=== PATIENT | male | born 1960 | race Caucasian/White ===

== ENCOUNTER 2023-02-27 11:51 | Emergency (ER) | payer OTHER ==
[~2023-02-27] VITALS: Ht 170.2 cm; Wt 124.7 kg
[~2023-02-27 11:51] MED LIST: ACEASPCAF; ACET500; ALBU90OI INH; AMOCLA875 PO; AMOX500 PO; ASPI325; ASPI325 PO; ASPI500; CEPH500 PO; DOC250 PO; EXCEDRIN MIGRAINE; HYDACE5 PO; HYDGUAL120 PO; IBUP800; INS70/30I; INSN100I SQ; INSR10I; INSR10I SQ; LEVFLO500 PO; LISI5; LISI5 PO; METF500; METF500 PO; METR500 PO; OXYACE5T PO; PENVK500 PO; PIOG15; PRED20 PO; RXSULTRIDS PO; SULTRIDS PO; SULTRISS; TRAM50; VALA500 PO; [UNRECOGNIZED DRUG - REMARK]
[2023-02-27 12:02] VITALS: BP 169/98
[2023-02-27] MEDS ORDERED: HYDR1TAB94 PO (13:50)
== END 2023-02-27 14:04 | disposition home or self-care (01) ==
LOC: ER 11:51
DX: E11.40 Type 2 diabetes mellitus with diabetic neuropathy, unspecified (principal); Z51.81 Encounter for therapeutic drug level monitoring; I10 Essential (primary) hypertension; Z79.4 Long term (current) use of insulin; Z79.82 Long term (current) use of aspirin; Z79.2 Long term (current) use of antibiotics; Z79.1 Long term (current) use of non-steroidal anti-inflammatories (NSAID); Z79.899 Other long term (current) drug therapy
CPT/HCPCS: J1885; J3010

== ENCOUNTER 2024-04-30 16:25 | Emergency (ER) | payer OTHER ==
[~2024-04-30] VITALS: Ht 167.6 cm; Wt 122.5 kg
[~2024-04-30 16:25] MED LIST changes: +HYDR1TAB94 PO
[2024-04-30 17:04] VITALS: BP 143/86
[2024-04-30] MEDS ORDERED: FentaNYL Citrate 50 MCG/ML 2 ML Injection IM ONE (17:15)
[2024-04-30] MEDS ORDERED: Insulin Glargine-Yfgn 100 Unit/mL 3 ML SYR SC ONE (17:15)
== END 2024-04-30 18:17 | disposition home or self-care (01) ==
LOC: ER 16:25
DX: E11.42 Type 2 diabetes mellitus with diabetic polyneuropathy (principal); E11.65 Type 2 diabetes mellitus with hyperglycemia; G51.0 Bell's palsy; I10 Essential (primary) hypertension; Z79.4 Long term (current) use of insulin; Z79.82 Long term (current) use of aspirin; Z79.899 Other long term (current) drug therapy
CPT/HCPCS: 96374; 99281-25; J1815; J3010

== ENCOUNTER 2024-09-13 03:41 | Inpatient (IN) | payer OTHER ==
[2024-09-13] VITALS (7 sets, daily range): BP systolic 124–160; BP diastolic 65–93
[~2024-09-13] VITALS: Ht 170.2 cm; Wt 127.6 kg
[2024-09-13] MEDS ORDERED: Albuterol 2.5 MG/3 ML VIAL INH SCH (04:05)
[2024-09-13 05:06] LABS: Bicarbonate Venous 22.7 mmol/L (24.0-30.0); PCO2 Venous 40 mmHg (38-42); pH Blood Venous 7.37 (7.34-7.37)
[2024-09-13] MEDS ORDERED: FLU VACC TS2024-25(6MOS UP)/PF 45 MCG/0.5 ML SYRINGE IM ONE (05:10)
[2024-09-13] MEDS ORDERED: Ondansetron HCl 2 MG / ML 2ML Vial IV PRN (05:10)
[2024-09-13] MEDS ORDERED: Ipratropium/Albuterol SulF 2.5-0.5MG/3 ML Amp INH SCH ×2 (05:40→05:50)
[2024-09-13] MEDS ORDERED: Acetaminophen 325 MG TABLET PO PRN (05:40)
[2024-09-13] MEDS ORDERED: Albuterol 2.5 MG/3 ML VIAL INH PRN (05:45)
[2024-09-13] MEDS ORDERED: OxyCODONE HCL 5 MG TAB PO PRN ×2 (05:55→06:55)
[2024-09-13] MEDS ORDERED: Doxycycline Hyclate 100 MG in Dextrose 5% 250 ML IV SCH (05:59)
[2024-09-13] MEDS ORDERED: Vitamin B-12100 MCG PO (06:18)
[2024-09-13] MEDS ORDERED: DOCU100 PO (06:19)
[2024-09-13] MEDS ORDERED: Vitamin B Comple1 EA PO (06:20)
[2024-09-13] MEDS ORDERED: FentaNYL Citrate 50 MCG/ML 2 ML Injection IV PRN (06:25)
[2024-09-13] MEDS ORDERED: LATA.005SO BOTHEYES (06:29)
[2024-09-13] MEDS ORDERED: OZEMPIC1 MG/0.72 SC (06:31)
[2024-09-13] MEDS ORDERED: CARV25 PO (06:31)
[2024-09-13] MEDS ORDERED: METF500 PO (06:32)
[2024-09-13] MEDS ORDERED: JARDIANCE25 MG PO ×2 (06:33)
[2024-09-13] MEDS ORDERED: OXYC5 PO (06:34)
[2024-09-13] MEDS ORDERED: Flonase 0.05% N16 GM (06:35)
[2024-09-13] MEDS ORDERED: PRALUENT P150 MG/1 M SC (06:36)
[2024-09-13] MEDS ORDERED: STIOLTO RESPIMAT4 G1 INH (06:38)
[2024-09-13] MEDS ORDERED: HUMULIN N100 UNIT/6 SC (06:42)
[2024-09-13] MEDS ORDERED: Natrol Alpha 3300 MG (06:42)
[2024-09-13] MEDS ORDERED: [UNRECOGNIZED DRUG - OTHER] PO (06:44)
[2024-09-13] MEDS ORDERED: MOME220I INH (06:45)
[2024-09-13] MEDS ORDERED: THERA-D2000 UNIT PO (06:47)
[2024-09-13] MEDS ORDERED: NARCAN4 M1 (06:48)
[2024-09-13] MEDS ORDERED: [UNRECOGNIZED DRUG - OTHER] DT (06:49)
[2024-09-13] MEDS ORDERED: Morphine Sulfate 4 MG/1 ML Injection IV ONE (06:50)
[2024-09-13] MEDS ORDERED: Insulin Human Lispro 100 Units/ML 3ML Syringe SC SCH (07:30)
[2024-09-13] MEDS ORDERED: Saline Nasal Spray 45 ML PRN (08:05)
[2024-09-13 08:14] LABS: BASOPHILS ABSOLUTE AUTO 0.16 K/mm3 (0.00-0.23); BASOPHILS PERCENT AUTO 1 % (0-2); EOSINOPHILS ABSOLUTE AUTO 0.41 K/mm3 (0.00-0.68); EOSINOPHILS PERCENT AUTO 3 % (0-6); Hematocrit 49.8 % (37.0-53.0); Hemoglobin 16.1 g/dL (13.5-17.5); IMMATURE GRAN ABSOLUTE AUTO 0.09 K/mm3 (0.00-0.10); IMMATURE GRAN PERCENT AUTO 1 % (0-1); LYMPHOCYTES ABSOLUTE AUTO 6.63 K/mm3 (0.84-5.20); LYMPHOCYTES PERCENT AUTO 41 % (21-46); MONOCYTES ABSOLUTE AUTO 1.27 K/mm3 (0.16-1.47); MONOCYTES PERCENT AUTO 8 % (4-13); Mean Corpuscular HGB 29.5 pg (26.0-34.0); Mean Corpuscular HGB Conc 32.3 g/dL (31.5-36.5); Mean Corpuscular Volume 91 fL (80-100); NEUTROPHILS ABSOLUTE AUTO 7.75 K/mm3 (1.96-9.15); NEUTROPHILS PERCENT AUTO 48 % (41-73); Platelet Count 267 K/mm3 (150-400); RDW Coefficient Variation 15.3 % (11.7-14.2); RDW Standard Deviation 50.7 fL (35.1-46.3); Red Blood Cell Count 5.45 M/mm3 (4.30-5.90); White Blood Cell Count 16.31 K/mm3 (4.00-11.30)
[2024-09-13 08:19] LABS: Albumin, Blood 4.1 g/dL (3.4-5.0); Bilirubin, Total 0.4 mg/dL (0.1-1.0); Bun/Creatinine Ratio 26.9 (12.0-20.0); Calcium, Blood 9.5 mg/dL (8.5-10.1); Creatinine, Blood 1.04 mg/dL (0.60-1.20); Globulin, Blood 4.1 g/dL (2.2-4.0); Potassium, Blood 4.9 mmol/L (3.5-5.5); Total Protein, Blood 8.2 g/dL (6.4-8.2)
[2024-09-13 08:49] LABS: Influenza A, PCR NEGATIVE (NEGATIVE); Influenza B, PCR NEGATIVE (NEGATIVE); Resp Syncytial Virus, PCR NEGATIVE (NEGATIVE); SARS-Cov-2 (COVID-19) PCR, MMC NEGATIVE (NEGATIVE)
--- NOTE | 2024-09-13 08:51 | NUR ---
ASSUMPTION OF CARE: PATIENT IS ALERT AND ORIENTED X 4 ANXIOUS, ABLE TO MAKE NEEDS KNOWN, CALLS APPROPRIATELY, DENIES CHEST PAIN OR PRESSURE. CURRENLTY ON 2L VIA NC SPO2 >95%. PATIENT HAS BIPAP AT BEDSIDE. CURRENLTY ST 100'S UP TO 130 WITH EXERTION, PATIENT ENDORSES PAIN PRN MEDICATION GIVEN SEE SEP. PATIENT DIURESING WELL. OSTOMY COVERED AT THIS TIME WITH PATIENT REINFORCEMENT, DECLINES CHANGE. SPUTUM CULTURE NEEDS TO BE COLLECTED. DR. ESCOTO ROUNDED ON PATIENT, ECHO TO BE PERFORMED. NO ACUTE CONCERNS FROM PATIENT OF THIS RN AT THIS TIME
[2024-09-13] MEDS ORDERED: Aspirin 81 MG Chew PO SCH (09:00)
[2024-09-13] MEDS ORDERED: Enoxaparin 40 MG/0.4 ML SYR SC SCH (09:00)
[2024-09-13] MEDS ORDERED: Azithromycin 500 MG in NS 250 ML IV SCH (09:00)
[2024-09-13] MEDS ORDERED: Lactobacil 2-S.Thermo-Bifido 1 1 Cap PO SCH (09:00)
[2024-09-13] MEDS ORDERED: Furosemide 10 MG / ML 2ML Vial IV SCH (09:00)
[2024-09-13] MEDS ORDERED: MethylPREDNISolone Sod Succ 125 MG Vial IV SCH (09:00)
[2024-09-13] MEDS ORDERED: GuaiFENesin 600 MG TabCR PO SCH (09:00)
[2024-09-13] MEDS ORDERED: Lisinopril 5 MG Tab PO SCH (16:15)
--- NOTE | 2024-09-13 18:18 | NUR ---
EOS: PATIENT ON AND OFF THE BIPAP THROUGH THE SHIFT, 05/02 30%. OR 2L NC FOR BREAKS. HAS BEEN DIURESING WELL, INCREASED PAIN MANAGED WITH EMAR MEDICATIONS CURRENTLY, ECHO THIS AM RESULTED. 1 LARGE FORMED STOOL VIA COLOSTOMY. SOB AT TIMES, IMPROVES WITH BIPAP. EDUCATED ON NEED, AND POTENTIAL FLUID RESTRICTION. DENIES CHEST PAIN PRESSURE. NEW BP AND HEART MEDCIATIONS STARTED BY DR. ESCOTO, CHANGES TO INSULIN ADMINISTRATION. PLAN OF CARE CONTINUES
[2024-09-13] MEDS ORDERED: Insulin NPH 100 Unit / ML 10ML Vial SC SCH (21:00)
[2024-09-13] MEDS ORDERED: Oxymetazoline 0.05% Nasal Relief Spray 15mL BTL SCH (21:00)
[2024-09-13] MEDS ORDERED: Carvedilol 25 MG Tab PO SCH (21:00)
[2024-09-13] MEDS ORDERED: Mometasone Furoate Inhaler 220 mcg 14 ACT INH SCH (21:00)
[2024-09-13] MEDS ORDERED: Latanoprost 0.005% Opth Soln 2.5 ML BOTHEYES SCH (21:00)
[2024-09-13] MEDS ORDERED: CefTRIAXone Sodium 1,000 MG in NS 100 ML IV SCH (21:00)
[2024-09-14] VITALS (7 sets, daily range): BP systolic 103–139; BP diastolic 60–97
[2024-09-14 04:15] LABS: BASOPHILS ABSOLUTE AUTO 0.01 K/mm3 (0.00-0.23); BASOPHILS PERCENT AUTO 0 % (0-2); EOSINOPHILS ABSOLUTE AUTO 0.01 K/mm3 (0.00-0.68); EOSINOPHILS PERCENT AUTO 0 % (0-6); Hematocrit 45.8 % (37.0-53.0); Hemoglobin 14.9 g/dL (13.5-17.5); IMMATURE GRAN ABSOLUTE AUTO 0.08 K/mm3 (0.00-0.10); IMMATURE GRAN PERCENT AUTO 1 % (0-1); LYMPHOCYTES ABSOLUTE AUTO 1.21 K/mm3 (0.84-5.20); LYMPHOCYTES PERCENT AUTO 10 % (21-46); MONOCYTES ABSOLUTE AUTO 0.62 K/mm3 (0.16-1.47); MONOCYTES PERCENT AUTO 5 % (4-13); Mean Corpuscular HGB Conc 32.5 g/dL (31.5-36.5); Mean Corpuscular Volume 89 fL (80-100); NEUTROPHILS PERCENT AUTO 84 % (41-73); Platelet Count 239 K/mm3 (150-400); RDW Coefficient Variation 15.1 % (11.7-14.2); RDW Standard Deviation 49.7 fL (35.1-46.3); Red Blood Cell Count 5.13 M/mm3 (4.30-5.90); White Blood Cell Count 12.03 K/mm3 (4.00-11.30)
[2024-09-14 04:42] LABS: Albumin, Blood 3.7 g/dL (3.4-5.0); Albumin/Globulin Ratio 0.9 (0.8-1.8); Bilirubin, Total 0.5 mg/dL (0.1-1.0); Bun/Creatinine Ratio 35.6 (12.0-20.0); Calcium, Blood 9.1 mg/dL (8.5-10.1); Creatinine, Blood 1.04 mg/dL (0.60-1.20); Magnesium, Blood 2.5 mg/dL (1.6-2.4); Potassium, Blood 4.6 mmol/L (3.5-5.5); Total Protein, Blood 7.7 g/dL (6.4-8.2)
--- NOTE | 2024-09-14 05:23 | NUR ---
SHIFT SUMMARY PT REMAINS A&OX4. VSS ON 2L NC WITH BIPAP HS & PRN. SATING >92%. PT STATES HE IS CLAUSTROPHOBIC AND CANNOT USE BIPAP OFTEN. PERIODS OF REST GIVEN THROUGHOUT NIGHT. PT C/O 04/04 IN BLE, FREQUENTLY, GIVEN PRNs PER MAR WITH GOOD EFFECT. GETS OOB WITH SBA, PIVOTS FROM CHAIR TO BED. ABX GIVEN PER MAR. NO FURTHER QUESTIONS OR CONCERNS AT THIS TIME. WILL CONTINUE WITH PLAN OF CARE AND REPORT TO ONCOMING DAY SHIFT NURSE.
[2024-09-14] MEDS ORDERED: Spironolactone 12.5 MG TAB PO SCH ×2 (09:00)
[2024-09-14] MEDS ORDERED: Empagliflozin 10 MG TAB PO SCH ×2 (09:00)
[2024-09-14] MEDS ORDERED: Insulin Human Lispro 100 Units/ML 3ML Syringe SC ONE ×2 (11:30→17:20)
[2024-09-14] MEDS ORDERED: Insulin NPH 100 Unit / ML 10ML Vial SC SCH (21:00)
[2024-09-15] MEDS ORDERED: Calcium Carbonate 500 MG Tab Chew PO ONE (00:10)
[2024-09-15 04:28] VITALS: BP 133/64
--- NOTE | 2024-09-15 05:29 | NUR ---
SHIFT SUMMARY PT A&O X4, OBEYS COMMANDS, MOVING ALL EXTREMITIES WITH PURPOSE, HOLDING APPROPRIATE CONVERSATION, PT IND IN ROOM URING CANE/EDUCATED TO CALL BEFORE AMBULATING. CONTINUOUS SPO2. SPO2 GREATER THAN 90% ON RA, NO SIGNS OF RESPIRATORY DISTRESS NOTED. CONTINUOUS TELE MONITORING, SINUS RHYTM 80-100 S, BP STABLE WITH MAP GREATER THAN 65, PT DENIES CHEST P/P T/O THIS SHIFT, PT DID REPORT FEELINGS OF HEART BURN THAT SUBSIDED WITH TUMBS, STRONG PULSES T/O. BOWEL TONES PRESENT IN ALL 4Q, OSTOMY DRESSING C/D/I, STOMA RED/BEEFY/MOSIT, PT REPORTING CONCERN OF NOT HAVING A BM THIS NIGHT 09/14 HE USUALLY HAS A BM EVERY DAY, PT DENIES FEELINGS OF CONSTIPATION. PT USING URINAL IND. PT REPORTING NEUROPTHY PAIN IN BLE STATING HIS FEET "FEEL LIKE WOOD AND BECOME STIFF" PT REPORTS HAVING TIRED NEUROPATHY MEDICATION IN THE PAST AND HAVE HAD POOR REACTIONS TO THEM, MEDICATED PT PER ORDERS. BED LOWEST POSITION, CALL LIGHT IN REACH, AWAITING TO GIVE REPORT TO ONCOMING RN.
[2024-09-15 06:02] LABS: Anion Gap 12 mmol/L (3-11); Blood Urea Nitrogen 44 mg/dL (8-24); CO2, Blood 22 mmol/L (21-32); Calcium, Blood 9.6 mg/dL (8.5-10.1); Chloride, Blood 104 mmol/L (98-108); Creatinine, Blood 0.94 mg/dL (0.60-1.20); Glomerular Filtration Rate 89 (60-); Glucose, Blood 236 mg/dL (70-99); Magnesium, Blood 2.7 mg/dL (1.6-2.4); Phosphorus, Blood 4.5 mg/dL (2.5-4.9); Potassium, Blood 4.4 mmol/L (3.5-5.5); Sodium, Blood 134 mmol/L (136-145)
[2024-09-15 08:12] VITALS: BP 139/84
--- NOTE | 2024-09-15 10:51 | NUR ---
am note this rn assumed care at 0700. vital signs stable. tele sinus rhythm 90s. patient is alert and oriented x4. perrla. patient is independent in the room and uses cane at baseline. patient is independent in adls and manages his own ostomy bag. patient reports pain in left knee and rated at 9, and medicated per emar. upon reassessment patient reported pain remains at 9, and this rn gave iv fentanyl and upon reassessment patient pain level at 5. see shift assessment for further pain. patient had a home oxygen eval and passed. patient does not need home oxygen. this rn called md meek and updated on this. md meek saw patient this am and plan to go home this afternoon.
[2024-09-15 11:41] VITALS: BP 136/72
[2024-09-15] MEDS ORDERED: ASPI81CH PO (11:51)
[2024-09-15] MEDS ORDERED: AMOCLA875 PO (11:52)
[2024-09-15] MEDS ORDERED: FURO20 PO (11:52)
[2024-09-15] MEDS ORDERED: DOXY100 PO (11:52)
[2024-09-15] MEDS ORDERED: PRED20 PO (11:53)
[2024-09-15] MEDS ORDERED: SPIR25 PO (11:54)
[2024-09-15] MEDS ORDERED: VISBIOME 112.51 EACH PO (11:55)
--- NOTE | 2024-09-15 12:45 | NUR ---
DISCHARGED SUMMARY: PT DISCHARGED TO HOME AT THIS TIME BY THIS RN. PT WAS GIVEN WRITTEN AND VERBAL DC INSTRUCTIOND. PT DENIES ANY FURTHER QUESTIONS OR CONCERNS. IV WAS REMOVED WITH CATHETER INTACT. PT WAS WHEELED OUT BY INTELLIGENCE INTERN VIA WHEELCHAIR.
[2024-09-16] MEDS ORDERED: PredniSONE 20 MG Tab PO SCH (09:00)
== END 2024-09-15 13:03 | disposition home or self-care (01) | DRG 193 ==
LOC: ER 03:41 → PCU 03:55
PROVIDERS: Family Medicine; Student in an Organized Health Care Education/Training Program; ADMIT Student in an Organized Health Care Education/Training Program
PROC: 5A09457 Assistance with Respiratory Ventilation, 24-96 Consecutive Hours, Continuous Positive Airway Pressure (ICD-10-PCS; principal; 2024-09-13)
DX: J18.9 Pneumonia, unspecified organism (principal); I50.21 Acute systolic (congestive) heart failure; J96.01 Acute respiratory failure with hypoxia; F11.20 Opioid dependence, uncomplicated; J44.1 Chronic obstructive pulmonary disease with (acute) exacerbation; J44.0 Chronic obstructive pulmonary disease with (acute) lower respiratory infection; I11.0 Hypertensive heart disease with heart failure; I48.91 Unspecified atrial fibrillation; E66.9 Obesity, unspecified; G51.0 Bell's palsy; L40.9 Psoriasis, unspecified; E11.40 Type 2 diabetes mellitus with diabetic neuropathy, unspecified; G89.29 Other chronic pain; Z98.890 Other specified postprocedural states; Z98.1 Arthrodesis status; Z87.891 Personal history of nicotine dependence; Z79.811 Long term (current) use of aromatase inhibitors; Z79.899 Other long term (current) drug therapy; Z79.4 Long term (current) use of insulin; Z79.82 Long term (current) use of aspirin; Z28.29 Immunization not carried out because of patient decision for other reason
CPT/HCPCS: 0241U; 36415; 71045; 80053; 80069; 82803; 82947; 83605; 83735; 83880; 84145; 84484; 85025; 85379; 87040; 87070; 87205; 93005; 93010; 93306; 94640; 94644; 94660; 94664; 94761; 94762; 96365; 96375; 99285-25; A9270; J0696; J1650; J1815; J1940; J2919; J3010; J7060

== ENCOUNTER 2025-03-18 12:25 | Emergency (ER) | payer OTHER ==
[~2025-03-18] VITALS: Ht 170.2 cm; Wt 131.5 kg
[~2025-03-18 12:25] MED LIST changes: +ASPI81CH PO; +CARV25 PO; +DOCU100 PO; +DOXY100 PO; +FURO20 PO; +Flonase 0.05% N16 GM; +HUMULIN N100 UNIT/6 SC; +JARDIANCE25 MG PO; +LATA.005SO BOTHEYES; +MOME220I INH; +NARCAN4 M1; +Natrol Alpha 3300 MG; +OXYC5 PO; +OZEMPIC1 MG/0.72 SC; +PRALUENT P150 MG/1 M SC; +SPIR25 PO; +STIOLTO RESPIMAT4 G1 INH; +THERA-D2000 UNIT PO; +VISBIOME 112.51 EACH PO; +Vitamin B Comple1 EA PO; +Vitamin B-12100 MCG PO; +[UNRECOGNIZED DRUG - OTHER] DT; +[UNRECOGNIZED DRUG - OTHER] PO
[2025-03-18 13:23] VITALS: BP 169/98
[2025-03-18] MEDS ORDERED: Veetids 500500 MG PO (13:57)
[2025-03-18] MEDS ORDERED: Norco 5-325 Ta1 EACH PO (13:57)
== END 2025-03-18 14:03 | disposition home or self-care (01) ==
LOC: ER 12:25
DX: K08.89 Other specified disorders of teeth and supporting structures (principal); E11.9 Type 2 diabetes mellitus without complications; I10 Essential (primary) hypertension; Z79.85 Long-term (current) use of injectable non-insulin antidiabetic drugs; Z79.84 Long term (current) use of oral hypoglycemic drugs; Z79.4 Long term (current) use of insulin; Z79.82 Long term (current) use of aspirin; Z79.52 Long term (current) use of systemic steroids; Z79.899 Other long term (current) drug therapy
CPT/HCPCS: 64400; 99282-25; A9270

== ENCOUNTER 2025-03-29 11:17 | Emergency (ER) | payer OTHER ==
[~2025-03-29] VITALS: Ht 175.3 cm; Wt 113.4 kg
[~2025-03-29 11:17] MED LIST changes: +Norco 5-325 Ta1 EACH PO; +Veetids 500500 MG PO
[2025-03-29 12:41] LABS: Source, Urine Voided
[2025-03-29 12:44] LABS: BASOPHILS ABSOLUTE AUTO 0.08 K/mm3 (0.00-0.23); BASOPHILS PERCENT AUTO 1 % (0-2); EOSINOPHILS ABSOLUTE AUTO 0.18 K/mm3 (0.00-0.68); EOSINOPHILS PERCENT AUTO 2 % (0-6); Hematocrit 43.2 % (37.0-53.0); Hemoglobin 14.5 g/dL (13.5-17.5); IMMATURE GRAN ABSOLUTE AUTO 0.03 K/mm3 (0.00-0.10); IMMATURE GRAN PERCENT AUTO 0 % (0-1); LYMPHOCYTES ABSOLUTE AUTO 1.98 K/mm3 (0.84-5.20); LYMPHOCYTES PERCENT AUTO 21 % (21-46); MONOCYTES ABSOLUTE AUTO 1.14 K/mm3 (0.16-1.47); MONOCYTES PERCENT AUTO 12 % (4-13); Mean Corpuscular HGB Conc 33.6 g/dL (31.5-36.5); Mean Corpuscular Volume 87 fL (80-100); NEUTROPHILS ABSOLUTE AUTO 6.24 K/mm3 (1.96-9.15); NEUTROPHILS PERCENT AUTO 65 % (41-73); NRBC ABSOLUTE 0.00 K/mm3 (0.00-0.02); NRBC Auto 0.0 /100 WBC (0.0-0.2); Platelet Count 244 K/mm3 (150-400); RDW Coefficient Variation 15.2 % (11.7-14.2); RDW Standard Deviation 48.3 fL (35.1-46.3)
[2025-03-29 12:58] LABS: Bilirubin, Urine Neg (Neg); Color, Urine Yellow (P-Yellow); Glucose Qualitative, Urine 4+ (Neg); Ketones, Urine Neg (Neg); Leukocyte Esterase, Urine Neg (Neg); Protein, Urine 1+ (Neg); Specific Gravity, Urine 1.015 (1.003-1.022); Urobilinogen, Urine NORM (Normal)
[2025-03-29 13:15] LABS: Alanine Aminotransfer (ALT/SGP 45.0 U/L (12-78); Albumin, Blood 3.9 g/dL (3.4-5.0); Albumin/Globulin Ratio 0.9 (0.8-1.8); Anion Gap 10.0 mmol/L (3-11); Aspartate Aminotrans (AST/SGOT 72.0 U/L (12-37); Bilirubin, Total 0.3 mg/dL (0.1-1.0); Blood Urea Nitrogen 51.0 mg/dL (8-24); CO2, Blood 22.0 mmol/L (21-32); Calcium, Blood 9.6 mg/dL (8.5-10.1); Chloride, Blood 106.0 mmol/L (98-108); Creatinine, Blood 1.37 mg/dL (0.60-1.20); Globulin, Blood 4.4 g/dL (2.2-4.0); Glucose, Blood 210.0 mg/dL (70-99); Potassium, Blood 4.5 mmol/L (3.5-5.5); Sodium, Blood 133.0 mmol/L (136-145); Total Protein, Blood 8.3 g/dL (6.4-8.2)
[2025-03-29 13:18] LABS: White Blood Cells, Urine 0-2 /hpf (0-5)
[2025-03-29 16:16] LABS: Influenza A, PCR NEGATIVE (NEGATIVE); Influenza B, PCR NEGATIVE (NEGATIVE); Resp Syncytial Virus, PCR NEGATIVE (NEGATIVE); SARS-Cov-2 (COVID-19) PCR, MMC NEGATIVE (NEGATIVE)
[2025-03-29] MEDS ORDERED: Ondansetron HCl 2 MG / ML 2ML Vial IV ONE (17:35)
[2025-03-29] MEDS ORDERED: HYDROmorphone HCl/Pf 1MG SYR IV ONE (17:35)
[2025-03-29 17:52] VITALS: BP 152/78
== END 2025-03-29 17:52 | disposition home or self-care (01) ==
LOC: ER 11:17
PROVIDERS: Emergency Medicine
DX: M79.652 Pain in left thigh (principal); M79.651 Pain in right thigh; Z79.4 Long term (current) use of insulin; E11.9 Type 2 diabetes mellitus without complications; I10 Essential (primary) hypertension; M79.18 Myalgia, other site; Z79.899 Other long term (current) drug therapy; Z79.84 Long term (current) use of oral hypoglycemic drugs
CPT/HCPCS: 73552; 80053; 81001; 85025; 87637; 93005; 93010; 93970; 96374; 96375; 99285-25; A9270; J1171; J2405